=== PATIENT | female | born 1965 | race Caucasian/White ===

== ENCOUNTER → 2017-04-02 | Outpatient (CLI) | payer OTHER ==
--- NOTE | 2017-04-02 12:53 | EEG Procedure Note ---
EEG Procedure Note Date of Service Apr 02, 2017. Start / End Times Start Time: 11:27 AM End Time: 12:27 AM Referring Physician Aurora Gonzalez History This is a 51-year-old female with a syncopal event in concern for seizure-like activity. One hour extended EEG for further evaluation of possible seizure etiology Description This is a 21 electrode EEG with a single channel dedicated to limited EKG. The electrodes were placed in accordance with the International 10-20 system. At the start of the recording the patient was in an awake state. Background was well organized and composed of symmetric mixed alpha and beta frequencies. There was a symmetric well-formed moderate amplitude 9-10 Hz posterior dominant rhythm that was reactive to eye opening and closure. Hyperventilation was not done. Intermittent photic stimulation at various frequencies produced no abnormalities. Sleep was indicated by vertex waves and symmetric sleep spindles Interpretation This is a normal awake and asleep 1 hour extended EEG. There was no electrographic seizures or epileptiform discharges. Clinical Correlation A normal EEG does not rule out epilepsy if there is a strong clinical suspicion.
== END | disposition home or self-care (01) ==
LOC: C.NEUR 11:05
PROVIDERS: ATTEND Psychiatry & Neurology Neurology
DX: R56.9 Unspecified convulsions (principal); R55 Syncope and collapse